=== PATIENT | female | born 1960 | race Caucasian/White ===

== ENCOUNTER → 2016-06-02 | Outpatient (REF) | LOC: M LAB 11:16 | PROVIDERS: ATTEND Nurse Practitioner Adult Health | DX: Z01.84 Encounter for antibody response examination (principal) ==

== ENCOUNTER → 2016-06-06 | Outpatient (CLI) | payer OTHER ==
[~2016-06-06] MED LIST: METHACHOLINE KIT (J7674) INH ONE
== END ==
LOC: M CARPUL 09:24
PROVIDERS: ATTEND Internal Medicine Pulmonary Disease
DX: R05 Cough (principal)

== ENCOUNTER → 2016-06-07 | Outpatient (CLI) | payer OTHER ==
--- NOTE | 2016-06-07 14:46 | REPMRS ---
Patient History The patient states she has not had a clinical breast exam in over a year. Patient is postmenopausal. Family history of breast cancer in niece under age 50. Taking estrogen for 3 years. Digital Woman Screen Mammo: June 07, 2016 - Exam #: [id number] Bilateral CC and MLO view(s) were taken. Technologist: Regi Culver, Technologist Prior study comparison: December 16, 2014, digital woman screen mammo performed at [facility] to [facility]. July 15, 2013, digital woman screen mammo performed at [facility] to [facility]. FINDINGS: There are scattered fibroglandular densities. There has been no change in the appearance of the mammogram from the prior studies. There is a mild amount of residual fibroglandular tissue which is fairly symmetric. There is no interval development of dominant mass, architectural distortion, or clustered microcalcification suggestive of malignancy. ASSESSMENT: BI-RADS/ACR category 1 mammogram. Negative. Recommendation Routine screening mammogram in 1 year (for women over age 40). This mammogram was interpreted with the aid of an FDA-approved computer-aided dectection system. Electronically Signed By: Jae Velarde MD 06/07/16 [id number]
== END ==
LOC: M WHC 11:21
PROVIDERS: ATTEND Internal Medicine
DX: Z12.31 Encounter for screening mammogram for malignant neoplasm of breast (principal)

== ENCOUNTER → 2019-07-02 | Outpatient (CLI) | payer OTHER ==
--- NOTE | 2019-07-02 15:47 | REP ---
Chest x-ray: Two views. History: Abnormal lung sounds. Comparison chest x-ray November 27, 2013 and june 25/2013. Findings: The lungs are slightly hyperinflated but clear. Pleural angles are sharp. Heart is not enlarged. Pulmonary vasculature is not increased. No significant bony abnormality is seen. There is a levoconvex curve in the upper thoracic spine unchanged. Impression: Hyperinflation. Otherwise no acute disease. Electronically Signed by Zhao Gannon MD 07/02/2019 03:39 P
== END ==
LOC: M LRY 15:02
PROVIDERS: ATTEND Nurse Practitioner Family
DX: R09.89 Other specified symptoms and signs involving the circulatory and respiratory systems (principal)

== ENCOUNTER → 2019-07-02 | Outpatient (REF) | payer OTHER | LOC: M SFHCLERA 14:41 | PROVIDERS: ATTEND Nurse Practitioner Family | DX: R53.81 Other malaise (principal); R05 Cough | CPT/HCPCS: 71046; 87486; 87581; 87633; 87798; 87804; 87880; G0463 ==

== ENCOUNTER → 2020-02-04 | Outpatient (CLI) | payer OTHER ==
--- NOTE | 2020-02-09 10:04 | REP ---
THORACIC SPINE SERIES CLINICAL: Thoracic pain. TECHNIQUE: AP and lateral views of the thoracic spine. FINDINGS: Alignment and kyphosis maintained. Vertebral bodies intact. No acute fracture/compression injury or subluxation. No significant degenerative changes. IMPRESSION: Normal age appropriate thoracic spine radiographs. MTDD
--- NOTE | 2020-02-09 10:05 | REP ---
CERVICAL SPINE SERIES CLINICAL: Neck pain. TECHNIQUE: AP, lateral, flexion/extension, bilateral oblique, and open-mouth views of the cervical spine. FINDINGS: Alignment and lordosis maintained. Mild-moderate focal degenerative changes at C5-6 includes endplate sclerosis with minimal spurring and disc space narrowing. Mild degenerative changes also noted at C6-7. Remainder of examination appears age appropriate and normal. No acute fracture/compression injury or subluxation. Open-mouth view demonstrates normal C1-C2 articulation and odontoid process. IMPRESSION: Mild focal degenerative changes at C5-6 and C6-7. MTDD
== END ==
LOC: M WUC 11:32
PROVIDERS: ATTEND Physician Assistant
DX: S13.4XXA Sprain of ligaments of cervical spine, initial encounter (principal); S23.3XXA Sprain of ligaments of thoracic spine, initial encounter; X58.XXXA Exposure to other specified factors, initial encounter; Y92.9 Unspecified place or not applicable; M50.322 Other cervical disc degeneration at C5-C6 level; M50.323 Other cervical disc degeneration at C6-C7 level

== ENCOUNTER → 2020-04-06 | Outpatient (CLI) | payer OTHER ==
--- NOTE | 2020-04-06 10:23 | REPMRS ---
Patient History The patient states she has not had a clinical breast exam in over a year. Family history of breast cancer under age 50 in niece. Taking estrogen for 3 years. Digital Woman Screen Mammo: April 06, 2020 - Exam #: [id number] Bilateral CC and MLO view(s) were taken. Technologist: Judy Hilliard, Technologist Prior study comparison: June 07, 2016, digital woman screen mammo performed at [facility]. December 16, 2014, digital woman screen mammo performed at [facility]. July 15, 2013, digital woman screen mammo performed at [facility]. FINDINGS: There are scattered fibroglandular densities. The Volpara volumetric breast density category is: B. There is a moderate amount of residual fibroglandular tissue which is fairly symmetric. There is no interval development of dominant mass, architectural distortion, or grouped microcalcification typical of malignancy. There has been no change in the appearance of the mammogram from the prior studies. 3-D tomosynthesis shows no additional findings. Assessment: BI-RADS/ACR category 1 mammogram. Negative Mammogram. Recommendation Routine screening mammogram of both breasts in 1 year (for women over age 40). This patient's [facility] Lifetime Breast Cancer RIsk is estimated at 7.4 %. This mammogram was interpreted with the aid of an FDA-approved computer-aided dectection system. Electronically Signed By: Tam Gannon MD 04/06/20 [id number]
== END ==
LOC: M WHC 08:55
PROVIDERS: ATTEND Obstetrics & Gynecology
DX: Z12.31 Encounter for screening mammogram for malignant neoplasm of breast (principal)

== ENCOUNTER → 2022-10-17 | Outpatient (REF) | payer OTHER | LOC: M LAB REF 16:12 | PROVIDERS: ATTEND Physician Assistant | DX: R30.0 Dysuria (principal) ==

== ENCOUNTER → 2023-03-13 | Outpatient (REF) | payer OTHER | LOC: M LAB REF 15:44 | PROVIDERS: ATTEND Nurse Practitioner Family | DX: R30.0 Dysuria (principal) ==

== ENCOUNTER 2023-07-18 20:03 | Emergency (ER) | payer OTHER ==
[~2023-07-18] VITALS: Ht 170.2 cm; Wt 77.7 kg
[2023-07-18 20:59] LABS: BASO % 0.4 % (0.0-1.0); EOS # 0.1 10^3/uL (0.0-0.5); EOS % 0.8 % (0.0-3.0); HEMATOCRIT 41.6 % (36.0-47.0); HEMOGLOBIN 14.2 g/dl (12.0-15.5); LYMPH # 2.5 10^3/uL (1.5-5.0); LYMPH % 30.5 % (24.0-44.0); MEAN CORPUSCULAR HEMOGLOBIN 30.7 pg (27.0-33.0); MEAN CORPUSCULAR HGB CONC 34.1 g/dl (32.0-36.5); NEUTROPHILS # 4.7 10^3/uL (1.5-8.5); NEUTROPHILS % 56.2 % (36.0-66.0); PLATELET COUNT, AUTOMATED 219 10^3/uL (150-450); RED BLOOD COUNT 4.62 10^6/uL (4.00-5.40); WHITE BLOOD COUNT 8.3 10^3/uL (4.0-10.0)
[2023-07-18 21:28] LABS: LIPASE 32 U/L (12-53)
[2023-07-18 21:30] LABS: ALBUMIN 3.9 G/DL (3.2-5.2); ALKALINE PHOSPHATASE 51 U/L (46-116); ALT/SGPT 14 U/L (7.0-40); AST/SGOT 15 U/L (<34); BILIRUBIN,DIRECT 0.1 MG/DL (<0.4); BILIRUBIN,TOTAL 0.3 MG/DL (0.3-1.2); BLOOD UREA NITROGEN 16 MG/DL (9-23); CALCIUM LEVEL 9.1 MG/DL (8.3-10.6); CARBON DIOXIDE LEVEL 28 MMOL/L (20-31); CHLORIDE LEVEL 103 MMOL/L (98-107); CREATININE FOR GFR 0.68 MG/DL (0.55-1.30); GLOMERULAR FILTRATION RATE > 60.0 (>45); GLUCOSE, FASTING 100 MG/DL (74-106); POTASSIUM SERUM 3.5 MMOL/L (3.5-5.1); SODIUM LEVEL 137 MMOL/L (136-145); TOTAL PROTEIN 6.9 G/DL (5.7-8.2)
[2023-07-18 21:47] VITALS: BP 159/70; TEMP 98.3; O2SAT 97
[2023-07-18] MEDS ORDERED: ISOVUE-370 76% 100ML VIAL As Ordered ONE (22:01)
[2023-07-18] MEDS: MAALOX 30 ML SUSP *UDC PO ONE (22:29)
[2023-07-18] MEDS: SUCRALFATE SUSP 1GM/10ML UD PO ONE (22:29)
[2023-07-18] MEDS: PANTOPRAZOLE 40MG VIAL IV ONE (22:30)
[2023-07-18] MEDS: ONDANSETRON 4MG 2ML VIAL IV ONE (23:33)
[2023-07-18] MEDS ORDERED: ONDA4TAB6 PO (23:36)
[2023-07-18] MEDS ORDERED: CARA1TAB6 PO (23:36)
[2023-07-18] MEDS ORDERED: PROT1TAB2 PO (23:36)
[2023-07-19] MEDS ORDERED: PEPC1TAB5 PO (08:54)
[2023-07-19] MEDS ORDERED: REGL10TA6 PO (08:54)
== END 2023-07-18 23:57 | disposition home or self-care (01) ==
LOC: M ED 20:03
DX: K29.70 Gastritis, unspecified, without bleeding (principal)
CPT/HCPCS: 74177; 80048; 80076; 83690; 85025; 93041; 96374; 96375; 99284; C9113; J2405; Q9967

== ENCOUNTER 2023-07-19 04:16 | Emergency (ER) | payer OTHER ==
[~2023-07-19] VITALS: Ht 170.2 cm; Wt 80.4 kg
[~2023-07-19 04:16] MED LIST changes: +CARA1TAB6 PO; -METHACHOLINE KIT (J7674) INH ONE; +ONDA4TAB6 PO; +PROT1TAB2 PO
[2023-07-19] MEDS: ONDANSETRON 4MG ORAL DISINTEGRATING TAB PO ONE (04:57)
[2023-07-19] MEDS: MORPHINE 4 MG/ML 1ML VIAL IV ONE (06:32)
[2023-07-19] MEDS: METOCLOPRAMIDE INJ 10MG/2ML VIAL IV ONE (06:32)
[2023-07-19 06:52] LABS: BASO % 0.2 % (0.0-1.0); HEMATOCRIT 45.4 % (36.0-47.0); HEMOGLOBIN 15.5 g/dl (12.0-15.5); LYMPH # 1.4 10^3/uL (1.5-5.0); LYMPH % 13.2 % (24.0-44.0); MEAN CORPUSCULAR HGB CONC 34.1 g/dl (32.0-36.5); MEAN CORPUSCULAR VOLUME 87.8 fl (80.0-96.0); MONO # 0.5 10^3/uL (0.0-0.8); MONO % 4.4 % (2.0-8.0); NEUTROPHILS # 8.9 10^3/uL (1.5-8.5); NEUTROPHILS % 81.7 % (36.0-66.0); PLATELET COUNT, AUTOMATED 238 10^3/uL (150-450); RED BLOOD COUNT 5.17 10^6/uL (4.00-5.40); WHITE BLOOD COUNT 10.9 10^3/uL (4.0-10.0)
[2023-07-19 07:15] LABS: LIPASE 37 U/L (12-53)
[2023-07-19 07:16] LABS: CPK CREATINE PHOSPHOKINASE 128 U/L (34-145)
[2023-07-19 07:19] LABS: ALBUMIN 4.4 G/DL (3.2-5.2); ALKALINE PHOSPHATASE 57 U/L (46-116); ALT/SGPT 16 U/L (7.0-40); AST/SGOT 17 U/L (<34); BILIRUBIN,DIRECT 0.1 MG/DL (<0.4); BILIRUBIN,TOTAL 0.4 MG/DL (0.3-1.2); BLOOD UREA NITROGEN 13 MG/DL (9-23); CALCIUM LEVEL 10.2 MG/DL (8.3-10.6); CARBON DIOXIDE LEVEL 26 MMOL/L (20-31); CHLORIDE LEVEL 99 MMOL/L (98-107); CK-MB VALUE MASS < 1.0 NG/ML (<3.6); CREATININE FOR GFR 0.58 MG/DL (0.55-1.30); GLOMERULAR FILTRATION RATE > 60.0 (>45); GLUCOSE, FASTING 132 MG/DL (74-106); MB/CK RELATIVE INDEX 0.78 (< OR =4); SODIUM LEVEL 134 MMOL/L (136-145); TOTAL PROTEIN 7.8 G/DL (5.7-8.2)
[2023-07-19 07:37] LABS: APPEARANCE, URINE CLEAR (CLEAR); BACTERIA, URINE AUTO NEGATIVE (NEGATIVE); BILIRUBIN, URINE AUTO NEGATIVE (NEGATIVE); BLOOD, URINE BLOOD 1+ (NEGATIVE); COLOR, URINE YELLOW (YELLOW); GLUCOSE, URINE (UA) AUTO NEGATIVE (NEGATIVE); KETONE, URINE AUTO 2+ mg/dL (NEGATIVE); LEUKOCYTE ESTERASE, URINE AUTO NEGATIVE (NEGATIVE); MUCUS, URINE SMALL (NEGATIVE); NITRITE, URINE AUTO NEGATIVE (NEGATIVE); PROTEIN, URINE AUTO 2+ mg/dL (NEGATIVE); RBC, URINE AUTO 17 /HPF (0-3); SPECIFIC GRAVITY URINE AUTO 1.031 (1.002-1.035); SQUAMOUS EPITHELIAL CELL UR AU 0 /HPF (0-6); UROBILINOGEN, URINE AUTO 0.2 mg/dL (0.0-2.0); WBC, URINE AUTO 2 /HPF (0-3)
[2023-07-19] MEDS ORDERED: PEPC1TAB5 PO (08:54)
[2023-07-19] MEDS ORDERED: REGL10TA6 PO (08:54)
[2023-07-19 08:56] VITALS: BP 139/64; O2SAT 96
[2023-07-19 09:00] VITALS: TEMP 97.9
== END 2023-07-19 09:00 | disposition home or self-care (01) ==
LOC: M ED 04:16
DX: K29.70 Gastritis, unspecified, without bleeding (principal)
CPT/HCPCS: 76705; 80048; 80076; 81001; 82550; 82553; 83690; 84484; 85025; 93005; 96374; 96375; 99284; J2765